=== PATIENT | male | born 1970 | race Caucasian/White ===

== ENCOUNTER 2018-04-30 10:18 | Observation (INO) | payer OTHER ==
[2018-04-30] MEDS ORDERED: NITROGLYCERIN (SL) 0.4 MG TAB SL ×2 (12:00→13:30)
[2018-04-30 12:28] LABS: ADD MAN DIFF? NO
[2018-04-30 12:31] LABS: BASOPHILS % 0.5 % (0.0-2.0); EOSINOPHILS # 0.1 10^3/ul (0.0-0.5); HEMATOCRIT 46.8 % (42.0-52.0); HEMOGLOBIN 16.6 g/dl (14.0-18.0); LYMPHOCYTES # 2.2 10^3/ul (0.8-2.9); LYMPHOCYTES % 36.5 % (15.0-51.0); MEAN CORPUSCULAR HEMOGLOBIN 32.5 pg (29.0-33.0); MEAN CORPUSCULAR HGB CONC 35.5 g/dl (32.0-37.0); MEAN CORPUSCULAR VOLUME 91.6 fl (82.0-101.0); MEAN PLATELET VOLUME 10.1 fl (7.4-10.4); MONOCYTE # 0.4 10^3/ul (0.3-0.9); MONOCYTES % 7.3 % (0.0-11.0); NEUTROPHIL # 3.2 10^3/ul (1.6-7.5); NEUTROPHILS % 54.5 % (39.0-77.0); PLATELET COUNT 185 10^3/UL (140-415); RED BLOOD COUNT 5.11 10^6/ul (4.70-6.10); RED CELL DISTRIBUTION WIDTH 11.9 % (11.5-14.5)
[2018-04-30 12:31] LABS: WHITE BLOOD COUNT 5.9 10^3/ul (4.8-10.8)
[2018-04-30] MEDS: ASPIRIN 81 MG TAB PO (12:37)
[2018-04-30] MEDS: NITROGLYCERIN 2% 1 GM OINT PKT TD (12:38)
[2018-04-30 12:47] LABS: ANION GAP 13 (5-13); BLOOD UREA NITROGEN 9 mg/dl (7-20); CALCIUM 10.7 mg/dl (8.4-10.2); CARBON DIOXIDE 27 mmol/L (21-31); CHLORIDE 102 mmol/L (97-110); CREATININE 0.96 mg/dl (0.61-1.24); Estimated GFR > 60 mL/min (>60); GLUCOSE 90 mg/dl (70-220); POTASSIUM 4.6 mmol/L (3.5-5.1); SODIUM 142 mmol/L (135-144)
[2018-04-30 12:59] LABS: TROPONIN-I < 0.012 ng/ml (0.000-0.120)
[2018-04-30] MEDS ORDERED: NACL 0.9% 3 ML SYG IV (13:30)
[2018-04-30] MEDS ORDERED: ACETAMINOPHEN 325 MG TAB PO (13:30)
[2018-04-30] MEDS ORDERED: ONDANSETRON 4 MG INJ IV (13:30)
[2018-04-30] MEDS ORDERED: HYDROCODONE/APAP (5/325) TAB PO (13:30)
[2018-04-30] MEDS ORDERED: morphine 2 MG INJ IV (13:30)
[2018-04-30] MEDS: LIDOCAINE/MYLANTA 40 ML BTL PO (14:06)
[2018-04-30] MEDS: PANTOPRAZOLE (EC) 40 MG TAB PO (14:06)
[2018-04-30] MEDS: SUCRALFATE (100 MG/ML) 10ML CUP PO ×2 (16:54→20:11)
[2018-04-30 17:36] LABS: URIC ACID 10.1 mg/dl (3.1-7.9)
[2018-04-30] MEDS: ACETAMINOPHEN 325 MG TAB PO (18:05)
[2018-04-30 18:54] LABS: CREATINE KINASE 123 IU/L (23-200)
[2018-04-30 19:06] LABS: CK INDEX 0.5; CK-MB 0.62 ng/ml (0.0-2.4); TROPONIN-I < 0.012 ng/ml (0.000-0.120)
[2018-05-01 01:36] LABS: CK INDEX 0.4; CK-MB 0.45 ng/ml (0.0-2.4); TROPONIN-I < 0.012 ng/ml (0.000-0.120)
[2018-05-01 01:44] LABS: CREATINE KINASE 114 IU/L (23-200)
[2018-05-01] MEDS: PANTOPRAZOLE (EC) 40 MG TAB PO (05:48)
[2018-05-01 05:58] LABS: ADD MAN DIFF? NO
[2018-05-01 06:08] LABS: WHITE BLOOD COUNT 5.2 10^3/ul (4.8-10.8)
[2018-05-01 06:08] LABS: BASOPHILS % 0.4 % (0.0-2.0); EOSINOPHILS # 0.1 10^3/ul (0.0-0.5); HEMATOCRIT 42.7 % (42.0-52.0); HEMOGLOBIN 14.7 g/dl (14.0-18.0); LYMPHOCYTES # 2.5 10^3/ul (0.8-2.9); LYMPHOCYTES % 48.2 % (15.0-51.0); MEAN CORPUSCULAR HEMOGLOBIN 31.7 pg (29.0-33.0); MEAN CORPUSCULAR HGB CONC 34.4 g/dl (32.0-37.0); MEAN PLATELET VOLUME 10.5 fl (7.4-10.4); MONOCYTE # 0.6 10^3/ul (0.3-0.9); MONOCYTES % 10.5 % (0.0-11.0); NEUTROPHIL # 2.1 10^3/ul (1.6-7.5); NEUTROPHILS % 39.7 % (39.0-77.0); PLATELET COUNT 166 10^3/UL (140-415); RED BLOOD COUNT 4.64 10^6/ul (4.70-6.10); RED CELL DISTRIBUTION WIDTH 11.8 % (11.5-14.5)
[2018-05-01 06:09] LABS: HEMOGLOBIN A1C 4.9 % (0-5.9)
[2018-05-01 06:33] LABS: ALANINE AMINOTRANSFERASE 94 IU/L (13-69); ALBUMIN 4.1 g/dl (3.3-4.9); ALBUMIN/GLOBULIN RATIO 1.46; ALKALINE PHOSPHATASE 78 IU/L (42-121); ANION GAP 11 (5-13); ASPARTATE AMINO TRANSFERASE 42 IU/L (15-46); BLOOD UREA NITROGEN 11 mg/dl (7-20); CALCIUM 9.8 mg/dl (8.4-10.2); CARBON DIOXIDE 29 mmol/L (21-31); CHLORIDE 101 mmol/L (97-110); CREATININE 1.05 mg/dl (0.61-1.24); Estimated GFR > 60 mL/min (>60); GLUCOSE 98 mg/dl (70-220); MAGNESIUM 1.8 mg/dl (1.7-2.5); SODIUM 141 mmol/L (135-144); TOTAL PROTEIN 6.9 g/dl (6.1-8.1)
[2018-05-01] MEDS: ASPIRIN 81 MG TAB PO (08:04)
[2018-05-01] MEDS: SUCRALFATE (100 MG/ML) 10ML CUP PO ×2 (08:04→12:33)
== END 2018-05-01 13:50 | disposition home or self-care (01) ==
LOC: E/R 10:18 → 6WM 13:15
DX: R07.9 Chest pain, unspecified (principal); E78.00 Pure hypercholesterolemia, unspecified; E78.5 Hyperlipidemia, unspecified; E66.9 Obesity, unspecified; Z68.41 Body mass index [BMI] 40.0-44.9, adult; M10.9 Gout, unspecified
CPT/HCPCS: 36415; 71045; 80048; 80053; 82550; 82553; 83036; 83735; 84484; 84560; 85025; 93005; 93306; 99285-25; G0378